=== PATIENT | female | born 1940 | race Hispanic/Latino ===

== ENCOUNTER 2016-08-12 17:12 | Emergency (ER) | payer MEDICARE ==
[2016-08-12] MEDS ORDERED: NACL 0.9% 500 ML 500 ML IV ONE (17:44)
[2016-08-12 18:10] LABS: Bilirubin,Urine NEG (Negative); Blood,Urine NEG (Negative); Ketones,Urine TR mg/dL (Negative); Leukocyte Esterase,Urine NEG (Negative); Mucus,Urine FEW /HPF; Nitrite,Urine NEG (Negative); Protein,Urine <15 mg/dL mg/dL (Negative); Urobilinogen,Urine < 2.0 mg/dL (<2.0)
[2016-08-12] MEDS ORDERED: NACL 0.9% 1000 ML 1,000 ML IV ONE (18:13)
--- NOTE | 2016-08-12 18:18 | Emergency Department Report ---
ED Altered Mental Status HPI - General Chief Complaint: Altered Mental Status Stated Complaint: AMS Time Seen by Provider: 08/12/16 17:59 Source: patient, EMS Mode of arrival: Stretcher Limitations: Altered Mental Status - History of Present Illness Initial Comments: 75-year-old female with history of hypertension and chronic back pain secondary to polio seeing pain medication doctor presented today because of altered mental status. Patient's son states that she was a little bit confused today and sleepy than usual. Unclear if she may have taken more that of her medication including her pain medication and medication for sleep and usual. Patient is denying any complaints. Upon arrival she was apparently hypoxic on room air but 100% on nonrebreather. Has not been having any cough, dysuria or any other symptoms recently. - Related Data Allergies Allergy/AdvReac Type Severity Reaction Status Date / Time No Known Allergies Allergy Unverified 08/12/16 17:39 ED Review of Systems ROS: Stated complaint: AMS Other details as noted in HPI Comment: All other systems reviewed and negative Constitutional: denies: chills, fever Respiratory: denies: cough Cardiovascular: denies: chest pain Gastrointestinal: denies: abdominal pain, vomiting Skin: denies: rash Neurological: denies: headache Psychiatric: denies: anxiety ED Past Medical Hx - Past Medical History Previous Medical History?: Yes Hx Hypertension: Yes - Surgical History Past Surgical History?: No - Social History Smoking Status: Never Smoker Substance Use Type: None ED Physical Exam - General Limitations: Altered Mental Status General appearance: alert, in no apparent distress - Eye Eye exam: Present: normal appearance, PERRL, EOMI - ENT ENT exam: Present: normal exam - Respiratory Respiratory exam: Present: normal lung sounds bilaterally. Absent: respiratory distress - Cardiovascular Cardiovascular Exam: Present: regular rate, normal rhythm - GI/Abdominal GI/Abdominal exam: Present: soft. Absent: distended, tenderness - Extremities Exam Extremities exam: Present: normal inspection - Neurological Exam Neurological exam: Present: other (alert and oriented 2, no focal deficits, strength 5 out of 5 in all extremities, no facial droop) - Psychiatric Psychiatric exam: Present: normal affect - Skin Skin exam: Present: intact ED Course Vital Signs 08/12/16 08/12/16 08/12/16 17:20 17:31 17:39 Temperature 99.5 F Pulse Rate 82 86 Respiratory 9 L 20 Rate Blood Pressure 118/56 109/52 118/56 Blood Pressure [Right] O2 Sat by Pulse 62 L 99 66 L Oximetry 08/12/16 08/12/16 08/12/16 18:00 19:15 19:28 Temperature Pulse Rate 80 75 Respiratory 10 L 12 Rate Blood Pressure 101/45 101/45 Blood Pressure 90/53 [Right] O2 Sat by Pulse 100 100 100 Oximetry 08/12/16 08/12/16 08/12/16 19:30 19:31 20:00 Temperature Pulse Rate 74 74 Respiratory 9 L 9 L Rate Blood Pressure 90/53 104/62 Blood Pressure [Right] O2 Sat by Pulse 100 100 99 Oximetry 08/12/16 08/12/16 08/12/16 20:31 21:00 21:31 Temperature Pulse Rate 77 77 75 Respiratory 13 18 10 L Rate Blood Pressure 104/62 111/70 111/70 Blood Pressure [Right] O2 Sat by Pulse 96 96 98 Oximetry - Reevaluation(s) Reevaluation #1: 08/12/16 20:14 She spent a lot of status is improved, she is much more awake but still not at her baseline. ABG showed hypercapnia, placed on a Ventimask. Reevaluation #2: 08/13/16 01:19 CABG so shows hypercapnia and given that she is on 40% O2 she is still a bit hypoxic, will admit the patient for altered mental status - Lab Data Result diagrams: 08/12/16 18:19 08/12/16 22:23 Lab Results 08/12/16 08/12/16 08/12/16 Range/Units 17:45 18:19 18:19 WBC 6.4 (4.5-11.0) K/mm3 RBC 4.12 (3.65-5.03) M/mm3 Hgb 8.4 L (10.1-14.3) gm/dl Hct 28.6 L (30.3-42.9) % MCV 70 L (79-97) fl MCH 21 L (28-32) pg MCHC 30 (30-34) % RDW 19.6 H (13.2-15.2) % Plt Count 260 (140-440) K/mm3 Lymph % (Auto) 16.1 (13.4-35.0) % [place] % (Auto) 5.7 (0.0-7.3) % Eos % (Auto) 1.3 (0.0-4.3) % Baso % (Auto) 0.2 (0.0-1.8) % Lymph # 1.0 L (1.2-5.4) K/mm3 [place] # 0.4 (0.0-0.8) K/mm3 Eos # 0.1 (0.0-0.4) K/mm3 Baso # 0.0 (0.0-0.1) K/mm3 Seg Neutrophils % 76.7 H (40.0-70.0) % Seg Neutrophils # 4.9 (1.8-7.7) K/mm3 PT 14.7 (12.2-14.9) Sec. INR 1.16 H (0.87-1.13) POC ABG pH (7.35-7.45) POC ABG pCO2 (35-45) POC ABG pO2 (80-105) POC ABG HCO3 POC ABG Total CO2 POC ABG O2 Sat POC ABG Base Excess VBG pH (7.320-7.420) FiO2 % Sodium (137-145) mmol/L Potassium (3.6-5.0) mmol/L Chloride (98-107) mmol/L Carbon Dioxide (22-30) mmol/L Anion Gap mmol/L BUN (7-17) mg/dL Creatinine (0.7-1.2) mg/dL Estimated GFR ml/min BUN/Creatinine Ratio % Glucose (65-100) mg/dL Lactic Acid (0.7-2.0) mmol/L Calcium (8.4-10.2) mg/dL Phosphorus (2.5-4.5) mg/dL Magnesium (1.7-2.3) mg/dL Total Bilirubin (0.1-1.2) mg/dL AST (5-40) units/L ALT (7-56) units/L Alkaline Phosphatase (35-129) units/L Ammonia (25-60) umol/L Total Protein (6.3-8.2) g/dL Albumin (3.9-5) g/dL Albumin/Globulin Ratio % Urine Color Yellow (Yellow) Urine Turbidity Clear (Clear) Urine pH 5.0 (5.0-7.0) Ur Specific [place] 1.019 (1.003-1.030) Urine Protein <15 mg/dl (Negative) mg/dL Urine Glucose (UA) Neg (Negative) mg/dL Urine Ketones Tr (Negative) mg/dL Urine Blood Neg (Negative) Urine Nitrite Neg (Negative) Urine Bilirubin Neg (Negative) Urine Urobilinogen < 2.0 (<2.0) mg/dL Ur Leukocyte Esterase Neg (Negative) Urine WBC (Auto) 1.0 (0.0-6.0) /HPF Urine RBC (Auto) 1.0 (0.0-6.0) /HPF Amorphous Crystals Few Urine Mucus Few /HPF Salicylates (2.8-20.0) mg/dL Acetaminophen (10.0-30.0) ug/mL Plasma/Serum Alcohol (0-0.07) gm% 08/12/16 08/12/16 08/12/16 Range/Units 18:19 18:19 18:19 WBC (4.5-11.0) K/mm3 RBC (3.65-5.03) M/mm3 Hgb (10.1-14.3) gm/dl Hct (30.3-42.9) % MCV (79-97) fl MCH (28-32) pg MCHC (30-34) % RDW (13.2-15.2) % Plt Count (140-440) K/mm3 Lymph % (Auto) (13.4-35.0) % [place] % (Auto) (0.0-7.3) % Eos % (Auto) (0.0-4.3) % Baso % (Auto) (0.0-1.8) % Lymph # (1.2-5.4) K/mm3 [place] # (0.0-0.8) K/mm3 Eos # (0.0-0.4) K/mm3 Baso # (0.0-0.1) K/mm3 Seg Neutrophils % (40.0-70.0) % Seg Neutrophils # (1.8-7.7) K/mm3 PT (12.2-14.9) Sec. INR (0.87-1.13) POC ABG pH (7.35-7.45) POC ABG pCO2 (35-45) POC ABG pO2 (80-105) POC ABG HCO3 POC ABG Total CO2 POC ABG O2 Sat POC ABG Base Excess VBG pH 7.180 L* (7.320-7.420) FiO2 % Sodium 138 (137-145) mmol/L Potassium 4.2 (3.6-5.0) mmol/L Chloride 99.5 (98-107) mmol/L Carbon Dioxide 25 (22-30) mmol/L Anion Gap 18 mmol/L BUN 29 H (7-17) mg/dL Creatinine 1.3 H (0.7-1.2) mg/dL Estimated GFR 40 ml/min BUN/Creatinine Ratio 22.30 % Glucose 103 H (65-100) mg/dL Lactic Acid 0.9 (0.7-2.0) mmol/L Calcium 8.4 (8.4-10.2) mg/dL Phosphorus (2.5-4.5) mg/dL Magnesium (1.7-2.3) mg/dL Total Bilirubin 0.2 (0.1-1.2) mg/dL AST 25 (5-40) units/L ALT 10 (7-56) units/L Alkaline Phosphatase 82 (35-129) units/L Ammonia (25-60) umol/L Total Protein 6.8 (6.3-8.2) g/dL Albumin 3.8 L (3.9-5) g/dL Albumin/Globulin Ratio 1.3 % Urine Color (Yellow) Urine Turbidity (Clear) Urine pH (5.0-7.0) Ur Specific [place] (1.003-1.030) Urine Protein (Negative) mg/dL Urine Glucose (UA) (Negative) mg/dL Urine Ketones (Negative) mg/dL Urine Blood (Negative) Urine Nitrite (Negative) Urine Bilirubin (Negative) Urine Urobilinogen (<2.0) mg/dL Ur Leukocyte Esterase (Negative) Urine WBC (Auto) (0.0-6.0) /HPF Urine RBC (Auto) (0.0-6.0) /HPF Amorphous Crystals Urine Mucus /HPF Salicylates (2.8-20.0) mg/dL Acetaminophen (10.0-30.0) ug/mL Plasma/Serum Alcohol (0-0.07) gm% 08/12/16 08/12/16 08/12/16 Range/Units 18:34 18:34 18:34 WBC (4.5-11.0) K/mm3 RBC (3.65-5.03) M/mm3 Hgb (10.1-14.3) gm/dl Hct (30.3-42.9) % MCV (79-97) fl MCH (28-32) pg MCHC (30-34) % RDW (13.2-15.2) % Plt Count (140-440) K/mm3 Lymph % (Auto) (13.4-35.0) % [place] % (Auto) (0.0-7.3) % Eos % (Auto) (0.0-4.3) % Baso % (Auto) (0.0-1.8) % Lymph # (1.2-5.4) K/mm3 [place] # (0.0-0.8) K/mm3 Eos # (0.0-0.4) K/mm3 Baso # (0.0-0.1) K/mm3 Seg Neutrophils % (40.0-70.0) % Seg Neutrophils # (1.8-7.7) K/mm3 PT (12.2-14.9) Sec. INR (0.87-1.13) POC ABG pH (7.35-7.45) POC ABG pCO2 (35-45) POC ABG pO2 (80-105) POC ABG HCO3 POC ABG Total CO2 POC ABG O2 Sat POC ABG Base Excess VBG pH (7.320-7.420) FiO2 % Sodium (137-145) mmol/L Potassium (3.6-5.0) mmol/L Chloride (98-107) mmol/L Carbon Dioxide (22-30) mmol/L Anion Gap mmol/L BUN (7-17) mg/dL Creatinine (0.7-1.2) mg/dL Estimated GFR ml/min BUN/Creatinine Ratio % Glucose (65-100) mg/dL Lactic Acid (0.7-2.0) mmol/L Calcium (8.4-10.2) mg/dL Phosphorus (2.5-4.5) mg/dL Magnesium (1.7-2.3) mg/dL Total Bilirubin (0.1-1.2) mg/dL AST (5-40) units/L ALT (7-56) units/L Alkaline Phosphatase (35-129) units/L Ammonia 41.0 (25-60) umol/L Total Protein (6.3-8.2) g/dL Albumin (3.9-5) g/dL Albumin/Globulin Ratio % Urine Color (Yellow) Urine Turbidity (Clear) Urine pH (5.0-7.0) Ur Specific [place] (1.003-1.030) Urine Protein (Negative) mg/dL Urine Glucose (UA) (Negative) mg/dL Urine Ketones (Negative) mg/dL Urine Blood (Negative) Urine Nitrite (Negative) Urine Bilirubin (Negative) Urine Urobilinogen (<2.0) mg/dL Ur Leukocyte Esterase (Negative) Urine WBC (Auto) (0.0-6.0) /HPF Urine RBC (Auto) (0.0-6.0) /HPF Amorphous Crystals Urine Mucus /HPF Salicylates < 0.3 L (2.8-20.0) mg/dL Acetaminophen < 15.0 (10.0-30.0) ug/mL Plasma/Serum Alcohol (0-0.07) gm% 08/12/16 08/12/16 08/12/16 Range/Units 18:34 18:34 19:44 WBC (4.5-11.0) K/mm3 RBC (3.65-5.03) M/mm3 Hgb (10.1-14.3) gm/dl Hct (30.3-42.9) % MCV (79-97) fl MCH (28-32) pg MCHC (30-34) % RDW (13.2-15.2) % Plt Count (140-440) K/mm3 Lymph % (Auto) (13.4-35.0) % [place] % (Auto) (0.0-7.3) % Eos % (Auto) (0.0-4.3) % Baso % (Auto) (0.0-1.8) % Lymph # (1.2-5.4) K/mm3 [place] # (0.0-0.8) K/mm3 Eos # (0.0-0.4) K/mm3 Baso # (0.0-0.1) K/mm3 Seg Neutrophils % (40.0-70.0) % Seg Neutrophils # (1.8-7.7) K/mm3 PT (12.2-14.9) Sec. INR (0.87-1.13) POC ABG pH 7.255 L (7.35-7.45) POC ABG pCO2 63.3 H (35-45) POC ABG pO2 203 H (80-105) POC ABG HCO3 28.0 POC ABG Total CO2 30 POC ABG O2 Sat 100 POC ABG Base Excess 1 VBG pH (7.320-7.420) FiO2 100 % Sodium (137-145) mmol/L Potassium (3.6-5.0) mmol/L Chloride (98-107) mmol/L Carbon Dioxide (22-30) mmol/L Anion Gap mmol/L BUN (7-17) mg/dL Creatinine (0.7-1.2) mg/dL Estimated GFR ml/min BUN/Creatinine Ratio % Glucose (65-100) mg/dL Lactic Acid (0.7-2.0) mmol/L Calcium (8.4-10.2) mg/dL Phosphorus 5.6 H (2.5-4.5) mg/dL Magnesium 2.1 (1.7-2.3) mg/dL Total Bilirubin (0.1-1.2) mg/dL AST (5-40) units/L ALT (7-56) units/L Alkaline Phosphatase (35-129) units/L Ammonia (25-60) umol/L Total Protein (6.3-8.2) g/dL Albumin (3.9-5) g/dL Albumin/Globulin Ratio % Urine Color (Yellow) Urine Turbidity (Clear) Urine pH (5.0-7.0) Ur Specific [place] (1.003-1.030) Urine Protein (Negative) mg/dL Urine Glucose (UA) (Negative) mg/dL Urine Ketones (Negative) mg/dL Urine Blood (Negative) Urine Nitrite (Negative) Urine Bilirubin (Negative) Urine Urobilinogen (<2.0) mg/dL Ur Leukocyte Esterase (Negative) Urine WBC (Auto) (0.0-6.0) /HPF Urine RBC (Auto) (0.0-6.0) /HPF Amorphous Crystals Urine Mucus /HPF Salicylates (2.8-20.0) mg/dL Acetaminophen (10.0-30.0) ug/mL Plasma/Serum Alcohol < 0.01 (0-0.07) gm% 08/12/16 08/12/16 Range/Units 20:41 22:23 WBC (4.5-11.0) K/mm3 RBC (3.65-5.03) M/mm3 Hgb (10.1-14.3) gm/dl Hct (30.3-42.9) % MCV (79-97) fl MCH (28-32) pg MCHC (30-34) % RDW (13.2-15.2) % Plt Count (140-440) K/mm3 Lymph % (Auto) (13.4-35.0) % [place] % (Auto) (0.0-7.3) % Eos % (Auto) (0.0-4.3) % Baso % (Auto) (0.0-1.8) % Lymph # (1.2-5.4) K/mm3 [place] # (0.0-0.8) K/mm3 Eos # (0.0-0.4) K/mm3 Baso # (0.0-0.1) K/mm3 Seg Neutrophils % (40.0-70.0) % Seg Neutrophils # (1.8-7.7) K/mm3 PT (12.2-14.9) Sec. INR (0.87-1.13) POC ABG pH (7.35-7.45) POC ABG pCO2 (35-45) POC ABG pO2 (80-105) POC ABG HCO3 POC ABG Total CO2 POC ABG O2 Sat POC ABG Base Excess VBG pH (7.320-7.420) FiO2 % Sodium 139 (137-145) mmol/L Potassium 4.2 (3.6-5.0) mmol/L Chloride 104.1 (98-107) mmol/L Carbon Dioxide 26 (22-30) mmol/L Anion Gap 13 mmol/L BUN 27 H (7-17) mg/dL Creatinine 1.2 (0.7-1.2) mg/dL Estimated GFR 44 ml/min BUN/Creatinine Ratio 22.50 % Glucose 108 H (65-100) mg/dL Lactic Acid 0.7 (0.7-2.0) mmol/L Calcium 7.8 L (8.4-10.2) mg/dL Phosphorus (2.5-4.5) mg/dL Magnesium (1.7-2.3) mg/dL Total Bilirubin (0.1-1.2) mg/dL AST (5-40) units/L ALT (7-56) units/L Alkaline Phosphatase (35-129) units/L Ammonia (25-60) umol/L Total Protein (6.3-8.2) g/dL Albumin (3.9-5) g/dL Albumin/Globulin Ratio % Urine Color (Yellow) Urine Turbidity (Clear) Urine pH (5.0-7.0) Ur Specific [place] (1.003-1.030) Urine Protein (Negative) mg/dL Urine Glucose (UA) (Negative) mg/dL Urine Ketones (Negative) mg/dL Urine Blood (Negative) Urine Nitrite (Negative) Urine Bilirubin (Negative) Urine Urobilinogen (<2.0) mg/dL Ur Leukocyte Esterase (Negative) Urine WBC (Auto) (0.0-6.0) /HPF Urine RBC (Auto) (0.0-6.0) /HPF Amorphous Crystals Urine Mucus /HPF Salicylates (2.8-20.0) mg/dL Acetaminophen (10.0-30.0) ug/mL Plasma/Serum Alcohol (0-0.07) gm% - Medical Decision Making IV, labs, nonrebreather, CT head, chest x-ray Chest x-ray appears to show a bowel in the right upper quadrant, no clear focal infiltrate CTA of the chest done for hypoxia without clear etiology has a patient is not a smoker and has no history of COPD or asthma Labs show a low pH likely secondary to hypercapnia CT head negative Will Admit for altered mental status and hypoxia and hypercapnia Critical care attestation.: If time is entered above; I have spent that time in minutes in the direct care of this critically ill patient, excluding procedure time. ED Disposition Clinical Impression: Metabolic encephalopathy Disposition: OP ADMITTED IP TO THIS HOSP Is pt being admited?: Yes Does the pt Need Aspirin: No Condition: Stable Referrals: PRIMARY CARE, [Primary Care Provider] - 3-5 Days Time of Disposition: 01:23
[2016-08-12 18:45] LABS: Basophils % (Auto) 0.2 % (0.0-1.8); Eosinophils % (Auto) 1.3 % (0.0-4.3); Mean Corpuscular HGB Conc 30 % (30-34); Platelet Count 260 K/mm3 (140-440); Red Blood Count 4.12 M/mm3 (3.65-5.03); Red Cell Distribution Width 19.6 % (13.2-15.2); White Blood Count 6.4 K/mm3 (4.5-11.0)
[2016-08-12 18:57] LABS: Albumin 3.8 g/dL (3.9-5); Albumin/Globulin Ratio 1.3 %; BUN/Creatinine Ratio 22.3; Bilirubin,Total 0.2 mg/dL (0.1-1.2); Calcium 8.4 mg/dL (8.4-10.2); Chloride 99.5 mmol/L (98-107); Potassium 4.2 mmol/L (3.6-5.0); Total Protein 6.8 g/dL (6.3-8.2)
--- NOTE | 2016-08-12 19:07 | Cat Scan Report ---
FINAL REPORT EXAM: CT HEAD/BRAIN WO CON HISTORY: ams TECHNIQUE: CT imaging is acquired through the brain without contrast. Transaxial reformations are provided. PRIORS: None. FINDINGS: Ventricles and CSF spaces are proportionately enlarged, consistent with parenchymal atrophy. Scattered deep and subcortical white matter hypodense foci are confluent in some areas and are compatible with microvascular angiopathy. No acute intracranial hemorrhage or mass effect. Calvarium and superficial scalp are intact. Hyperostosis frontalis. Partially visualized paranasal sinuses are clear. Mastoids are clear. IMPRESSION: No acute intracranial abnormality. 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 Consider MRI follow-up.
[2016-08-12 19:12] LABS: Magnesium 2.1 mg/dL (1.7-2.3); Phosphorous 5.6 mg/dL (2.5-4.5)
[2016-08-12 19:21] LABS: Hematocrit 28.6 % (30.3-42.9); Hemoglobin 8.4 gm/dl (10.1-14.3)
[2016-08-12 19:22] LABS: Mean Corpuscular Hemoglobin 21 pg (28-32); Mean Corpuscular Volume 70 fl (79-97)
--- NOTE | 2016-08-12 19:35 | Admit Criteria Form ---
Admission Criteria Documentation: MENTAL STATUS CHANGE Clinical Indications for Inpatient Care (Place 'X' for any and all applicable criteria): Ongoing inpatient care may be needed for 1 or more of the following(1)(2)(3)(5)( 6): []I. Suspected serious etiology (eg, medical disorder, MARKET PRESIDENT event) of altered mental status [ ]II. Danger to self or others not manageable at lower level of care [ ]III. Grave disability (eg, inability to perform self care necessary at lower level of care) [ ]IV. Agitation or inappropriate behavior interfering with care for primary condition (eg, attempting to discontinue lines or drains prematurely, unable to cooperate with respiratory care) [ ]V. Delirium [A] [D][E] as described by 1 or more of the following(26): [ ]a) Delirium due to alcohol or sedative [F] withdrawal [ ]b) Delirium of uncertain etiology that has not responded to appropriate empiric treatment [ ]c) Delirium that prevents performance of a life-sustaining function (eg, feeding or hydrating oneself) [X]. General contraindications and/or Inappropriate clinical situations for Observational Care in patients with Mental Status Change, when ANY ONE of the following is required: [X]a) Prediction of prolongation of LOS based on ANY ONE of the following may be considered as a contraindication for observational care 2, 3, 4, 5, 6, 7, 8, 9, 10, 11 [X]i) Age > 65 yrs. [ ]ii) Patient arriving by ambulance [ ]iii) Patient with high acuity [ ]iv) Patient requiring vital sign monitoring [ ]v) Patient on IV medication [ ]b) Systolic blood pressures greater than or equal to 180mmHg 3, 12 [ ]c) Patient with altered mental status including delirium and other alteration of consciousness, (3) [ ]d) Patient whose discharge disposition will be to a nursing home home or rehabilitation home should not be managed in Emergency Department Observation Unit. CMS rule requires 3 days hospital stay before such placement.3,13 [ ]e) Patient with failure to thrive due to broad array of etiologies 3,16,17 [ ]f) Inability to ambulate 3,14 Extended stay beyond goal length of stay for the primary condition may be needed until ALL of the following are present(3)(5): [ ]a) Underlying medical etiology of mental status change is absent, or has been established and adequately treated [ ]b) Danger to self or others is absent or manageable at lower level of care. [ ]c) Behavior crisis management, including physical or chemical restraints, is not required or available at lower level of car [ ]d) Substance or alcohol withdrawal is absent or manageable at lower level of care. [ ]e) Behavioral symptoms (eg, agitation, somnolence, inappropriate behavior) are absent, or are manageable at lower level of care. The original [facility] content created by [facility] has been revised. The portions of the content which have been revised are identified through the use of italic text or in bold, and [facility] has neither reviewed nor approved the modified material. All other unmodified content is copyright [facility]. Please see references footnoted in the original [facility] edition 2016
[2016-08-12 19:48] LABS: INR 1.16 (0.87-1.13)
[2016-08-12] MEDS ORDERED: NARCAN 0.4 MG/1 ML IV ONE (20:02)
[2016-08-12 20:16] LABS: ISTAT Base Excess 1; ISTAT PCO2 63.3 (35-45); ISTAT PH 7.255 (7.35-7.45); ISTAT PO2 203 (80-105); ISTAT SO2 100; ISTAT TCO2 30
[2016-08-12] MEDS ORDERED: NACL ONE (22:44)
[2016-08-12 23:02] LABS: BUN/Creatinine Ratio 22.5; Calcium 7.8 mg/dL (8.4-10.2); Chloride 104.1 mmol/L (98-107); Potassium 4.2 mmol/L (3.6-5.0)
--- NOTE | 2016-08-13 00:40 | Cat Scan Report ---
FINAL REPORT EXAM: CT ANGIO CHEST HISTORY: ams, hypoxic COMPARISON: None available. TECHNIQUE: Contiguous axial images were obtained. Additional sagittal and coronal reformatted images were obtained. Administration of IV contrast given per institution protocol. Images submitted for interpretation. 100 cc Omnipaque 350. 3D volume renderings were obtained. FINDINGS: Mild cardiac enlargement. Ascending thoracic aorta measures 3.6 centimeters in diameter, within normal limits. No dissection. Mild to moderate calcified plaque along the thoracic aorta. No pulmonary embolus. Prominent bony lytic hernia on the right. Dense consolidation right lower lobe may reflect compressive atelectasis from the hernia. Pneumonia cannot be excluded. Scarring at the lung apices. Multiple calcified granulomas left upper lobe. Subpleural nodule at the anterior margin right middle lobe measuring 6 millimeters. 4 millimeter nodule right middle lobe is also present. Mild linear scarring or atelectasis left lower lobe. No obstructive lesion centrally within the tracheobronchial tree. Unopacified azygos vein is present and appears mildly prominent (series 3, image 32). IMPRESSION: No pulmonary embolus. 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 Consolidation right lower lobe may reflect compressive atelectasis. Pneumonia cannot be excluded. Scarring at the lung apices more pronounced on the left. Noncalcified nodules right middle lobe measuring up to [address] within 6-12 months suggested to ensure stability.
[2016-08-13 01:39] LABS: ISTAT Base Excess -3; ISTAT HCO3 24.6; ISTAT PCO2 59.4 (35-45); ISTAT PH 7.226 (7.35-7.45); ISTAT PO2 73 (80-105); ISTAT SO2 91; ISTAT TCO2 26
[2016-08-13 04:08] VITALS: BP 117/53
--- NOTE | 2016-08-13 10:12 | XRay Report ---
PORTABLE CHEST INDICATION: Possible sepsis. COMPARISON: None similar at this institution. FINDINGS: Portable, frontal chest radiograph demonstrates limited inspiration with slightly crowded markings and right lower lung haziness, presumably pleural fluid. Hepatic flexure lucency subjacent to the right hemidiaphragm may be noted with similar appearance to the splenic flexure on the left. Approximately 3 cm left upper lobe possibly nodular calcific scarring. Mild biapical scarring/pleural thickening as well. Mild aortic knob calcifications. Normal cardiomediastinal silhouette. EKG leads. Demineralized bones with few degenerative changes. CONCLUSION: Right lower lung haziness, left upper lobe possible scarring and other incidental findings, as above. Please correlate clinically and with prior chest imaging if available or further with CT, as warranted. Thank you for the opportunity to participate in this patient's care.
== END 2016-08-13 03:57 | disposition left against medical advice (07) ==
LOC: ED 17:12
DX: G93.41 Metabolic encephalopathy (principal); I10 Essential (primary) hypertension
CPT/HCPCS: 36415; 70450; 71010; 71275; 80048; 80053; 81001; 82140; 82803; 82805; 83735; 84100; 85025; 85610; 87040; 87086; 93005; 93010; 96360; 99285; G0480; J2310; J7030; J7040; 80320

== ENCOUNTER 2016-12-02 12:49 | Emergency (ER) | payer MEDICARE ==
--- NOTE | 2016-12-02 14:28 | XRay Report ---
Left wrist: Trauma, pain. There is a transverse fracture through the radius metaphysis as well as the distal ulnar. The distal radius fragment is slightly impacted and displaced posteriorly but still aligned with the carpal bones. There is also mild impaction of the distal ulnar fracture with angled posterior displacement of the distal fragment and apparent fracture of the styloid. The carpal bones appear intact. No pathologic lesions identified. Impressions: Displaced radius and ulnar fractures.
[2016-12-02] MEDS ORDERED: PERCOCET 5/325 PO ONE (14:53)
--- NOTE | 2016-12-02 15:05 | Emergency Department Report ---
HPI - General Chief Complaint: Fall Time Seen by Provider: 12/02/16 14:46 - HPI HPI: This is a 76-year-old female presents to the emergency department from home with complaint of left wrist pain and deformity since she had a slip and fall around noon today. The patient had some water on the ground and fell on her way back to bed. She fell with outstretched arms. She denies hitting her head or any loss of consciousness. She denies pain anywhere else besides the left wrist and arm. She has a past medical history of hypertension and previously had polio causing her to need to walk with a cane or crutches. She has not taken anything for symptoms prior to presentation. She is right-hand dominant. ED Past Medical Hx - Past Medical History Hx Hypertension: Yes Additional medical history: POLIO - Social History Smoking Status: Never Smoker Substance Use Type: None - Medications Home Medications: Home Medications Medication Instructions Recorded Confirmed Last Taken Type HYDROcodone/APAP 5-325 [[place] 1 each PO Q6HR PRN #10 tablet 12/02/16 Unknown Rx 5/325] ED Review of Systems ROS: Stated complaint: FALL Other details as noted in HPI Comment: All other systems reviewed and negative Constitutional: denies: chills, fever Eyes: denies: eye pain, eye discharge, vision change ENT: denies: ear pain, throat pain Respiratory: denies: cough, shortness of breath, wheezing Cardiovascular: denies: chest pain, palpitations Gastrointestinal: denies: abdominal pain, nausea, diarrhea Genitourinary: denies: urgency, dysuria, discharge Musculoskeletal: joint swelling, arthralgia Skin: denies: rash, lesions Neurological: denies: headache, weakness, paresthesias Physical Exam - Physical Exam Vital Signs: Vital Signs 12/02/16 13:51 Temperature 97.4 F L Pulse Rate 77 Respiratory 17 Rate Blood Pressure 114/56 O2 Sat by Pulse 99 Oximetry Physical Exam: GENERAL: The patient is well-developed well-nourished. HEENT: Normocephalic. Atraumatic. Extraocular motions are intact. Patient has moist mucous membranes. NECK: Supple. Trachea is midline. CHEST/LUNGS: Clear to auscultation. There is no respiratory distress noted. HEART/CARDIOVASCULAR: Regular. There is no tachycardia. There is no gallop rub or murmur. ABDOMEN: Abdomen is soft, nontender. Patient has normal bowel sounds. There is no abdominal distention. SKIN: Skin is warm and dry. There is some nonpitting swelling to the distal left forearm and wrist. NEURO: The patient is awake, alert, and oriented. The patient is cooperative. The patient has no focal neurologic deficits. The patient has normal speech. MUSCULOSKELETAL: There is a mild to moderate deformity seen to the distal left forearm and wrist consistent with a fracture. Cap refill less than 2 seconds. Radial pulses +2 over 4 bilaterally. Neurovascular intact. ED Course Vital Signs 12/02/16 13:51 Temperature 97.4 F L Pulse Rate 77 Respiratory 17 Rate Blood Pressure 114/56 O2 Sat by Pulse 99 Oximetry - Consultations Consultation #1: I spoke with the orthopedist on-call, Dr. Kiran, who took a look at the x-rays and listened to the case presentation and feels that it is safe for the patient to receive a splint, sling and follow-up on Wednesday in his office without any type of manipulation here in the emergency department since the patient is neurovascularly intact. She will most likely receive surgical intervention next week. 12/02/16 15:04 ED Medical Decision Making - Radiology Data Radiology results: image reviewed interpreted by me: X-ray of the left wrist shows a ulnar and radial fracture with an impact injury as well as some displacement. - Medical Decision Making 76-year-old female presents with left wrist pain and deformity after slipping and falling at home. X-ray confirms and ulnar and radial fracture. Spoke with an orthopedist who recommended splinting and follow-up on Wednesday. Patient given something for pain and placed in a volar splint. She is neurovascularly intact. Vital signs stable. - Differential Diagnosis fracture, dislocation, contusion, sprain Critical Care Time: No Critical care attestation.: If time is entered above; I have spent that time in minutes in the direct care of this critically ill patient, excluding procedure time. ED Disposition Clinical Impression: Left wrist fracture Qualifiers: Encounter type: initial encounter Fracture type: closed Qualified Code(s): S62.102A - Fracture of unspecified carpal bone, left wrist, initial encounter for closed fracture Fracture of radius, distal, with ulna, left, closed Qualifiers: Encounter type: initial encounter Qualified Code(s): S52.502A - Unspecified fracture of the lower end of left radius, initial encounter for closed fracture ; S52.602A - Unspecified fracture of lower end of left ulna, initial encounter for closed fracture Disposition: - TO HOME OR SELFCARE Is pt being admited?: No Condition: Stable Instructions: Wrist Fracture in Adults (ED) Additional Instructions: Please follow-up with the orthopedist, Dr. Kiran, on Wednesday. Call tomorrow for an appointment. You can use ice, but not directly against the skin, intermittently throughout the next 48 hours. Return to the emergency department with any worsening of your symptoms or any acute distress. You've been prescribed a medication that is sedating. Therefore this medication cannot be mixed with alcohol, or taken prior to driving, working, or being responsible for children. Do not take the splint off until follow-up with the orthopedist. Prescriptions: HYDROcodone/APAP 5-325 [[place] 5/325] 1 each PO Q6HR PRN #10 tablet PRN Reason: Pain Referrals: BRENDA KIRAN MD [Staff Physician] - 12/04/16 Time of Disposition: 15:52
[2016-12-02 16:18] VITALS: BP 100/58
== END 2016-12-02 16:19 | disposition home or self-care (01) ==
LOC: ED 12:49
DX: S52.502A Unspecified fracture of the lower end of left radius, initial encounter for closed fracture (principal); S52.602A Unspecified fracture of lower end of left ulna, initial encounter for closed fracture; S62.102A Fracture of unspecified carpal bone, left wrist, initial encounter for closed fracture; I10 Essential (primary) hypertension; W01.0XXA Fall on same level from slipping, tripping and stumbling without subsequent striking against object, initial encounter; Y93.89 Activity, other specified; Y99.8 Other external cause status; Y92.89 Other specified places as the place of occurrence of the external cause

== ENCOUNTER 2016-12-08 08:37 | Day surgery (SDC) | payer MEDICARE ==
[~2016-12-08 08:37] MED LIST: ANCEF/STERILE WATER 2 GM/20 ML IV NR
--- NOTE | 2016-12-08 09:47 | Anesthesia Consultation ---
Anesthesia Consult and Med Hx Date of service: 12/08/16 - Airway Anesthetic Teeth Evaluation: Poor (7 teeth left, black and pointed), Dentures ( upper) ROM Head & Neck: Adequate Mental/Hyoid Distance: Adequate Mallampati Class: Class II Intubation Access Assessment: Probably Good - Pulmonary Exam CTA: Yes - Cardiac Exam Cardiac Exam: RRR - Pre-Operative Health Status ASA Pre-Surgery Classification: ASA3 Proposed Anesthetic Plan: General - Pulmonary Hx Smoking: Yes Hx Asthma: Yes (SEASONAL) Hx Sleep Apnea: No (LUCIE PRE SCREEN LOW RISK) - Cardiovascular System Hx Hypertension: Yes (X 10 YRS) - Central Nervous System Hx Back Pain: Yes - Other Systems Hx Cancer: No - Additional Comments Anesthesia Medical History Comments: H/O polio as baby. walks with cane
--- NOTE | 2016-12-08 09:47 | Anesthesia Day of Surgery ---
Anesthesia Day of Surgery - Day of Surgery Patient Examined: Yes Patient H&P Reviewed: Yes Patient is NPO: Yes
[2016-12-08] MEDS ORDERED: VERSED IV NR (10:00)
[2016-12-08] MEDS ORDERED: PEPCID IV NR (10:00)
[2016-12-08] MEDS ORDERED: NACL 0.9% 1000 ML 1,000 ML IV SCH (10:00)
[2016-12-08] MEDS ORDERED: XYLOCAINE 1% 20 mL ONE (10:07)
[2016-12-08] MEDS ORDERED: MARCAINE-EPI 0.5%-1:200,000 INFILTRATI ONE (10:08)
[2016-12-08] MEDS ORDERED: DECADRON ONE (10:08)
[2016-12-08] MEDS ORDERED: CLONIDINE 1,000 MCG/10 ML VIAL EP ONE (10:08)
[2016-12-08 10:13] LABS: Basophils % (Auto) 0.9 % (0.0-1.8); Eosinophils % (Auto) 6.2 % (0.0-4.3); Hematocrit 27.1 % (30.3-42.9); Hemoglobin 8.2 gm/dl (10.1-14.3); Mean Corpuscular HGB Conc 30 % (30-34); Platelet Count 328 K/mm3 (140-440); Red Blood Count 4.15 M/mm3 (3.65-5.03); Red Cell Distribution Width 19.8 % (13.2-15.2); White Blood Count 5.7 K/mm3 (4.5-11.0)
[2016-12-08 10:19] LABS: Mean Corpuscular Hemoglobin 20 pg (28-32); Mean Corpuscular Volume 65 fl (79-97)
[2016-12-08 10:28] LABS: Alanine Aminotransferase 10 units/L (7-56); Albumin 3.9 g/dL (3.9-5); Albumin/Globulin Ratio 1.1 %; Alkaline Phosphatase 80 units/L (35-129); BUN/Creatinine Ratio 13.75; Blood Urea Nitrogen 11 mg/dL (7-17); Calcium 8.9 mg/dL (8.4-10.2); Carbon Dioxide 27 mmol/L (22-30); Glucose 94 mg/dL (65-100); Total Protein 7.4 g/dL (6.3-8.2)
[2016-12-08 10:29] LABS: Anion Gap 17 mmol/L; Chloride 99.7 mmol/L (98-107); Potassium 4.4 mmol/L (3.6-5.0); Sodium 139 mmol/L (137-145)
--- NOTE | 2016-12-08 10:34 | History and Physical Report ---
History of Present Illness Date of examination: 12/08/16 Chief complaint: 76-year-old female presents to the emergency department from home with complaint of left wrist pain and deformity since she had a slip and fall last week. The patient had some water on the floor and fell on her way back to bed. She fell with outstretched arms. She denies hitting her head or any loss of consciousness. She denies pain anywhere else besides the left wrist and arm. She has a past medical history of hypertension and previously had polio causing her to need to walk with a cane or crutches Medications and Allergies Allergies Allergy/AdvReac Type Severity Reaction Status Date / Time No Known Allergies Allergy Verified 12/02/16 13:49 Home Medications Medication Instructions Recorded Confirmed Last Taken Type HYDROcodone/APAP 5-325 [[place] 1 each PO Q6HR PRN #10 tablet 12/02/16 12/04/16 Unknown Rx 5/325] Active Meds: Active Medications Cefazolin Sodium (Ancef/Sterile Water 2 Gm/20 Ml) 2 gm IV PREOP NR Stop: 12/08/16 23:59 Famotidine (Pepcid) 20 mg IV PREOP NR Stop: 12/08/16 23:00 Last Admin: 12/08/16 10:10 Dose: 20 mg Sodium Chloride (Nacl 0.9% 1000 Ml) 1,000 mls @ 100 mls/hr IV DIRECT JOSE GUADALUPE Last Admin: 12/08/16 10:10 Dose: 100 mls/hr Midazolam HCl (Versed) 2 mg IV PREOP NR Stop: 12/08/16 23:59 Last Admin: 12/08/16 10:10 Dose: 2 mg Physical Examination - Physical exam Narrative exam: left wrist - obvious deformity at distal radius, decreased active ROM at wrist, tender to palpation Results - Labs Result Diagrams: 12/08/16 09:50 Labs: Abnormal lab results 12/08/16 Range/Units 09:50 Hgb 8.2 L (10.1-14.3) gm/dl Hct 27.1 L (30.3-42.9) % MCV 65 L (79-97) fl MCH 20 L (28-32) pg RDW 19.8 H (13.2-15.2) % [place] % (Auto) 10.8 H (0.0-7.3) % Eos % (Auto) 6.2 H (0.0-4.3) % H & H 12/08/16 Range/Units 09:50 Hgb 8.2 L (10.1-14.3) gm/dl Hct 27.1 L (30.3-42.9) % All other labs normal. Assessment and Plan asses - displaced left distal radius fracture plan- open reduction internal fixation left distal radius
[2016-12-08] MEDS ORDERED: XYLOCAINE MPF 2% ONE (10:47)
[2016-12-08] MEDS ORDERED: SUBLIMAZE ONE (10:47)
[2016-12-08] MEDS ORDERED: DIPRIVAN 10 MG/ML IV ONE ×2 (10:47→11:14)
[2016-12-08] MEDS ORDERED: ePHEDrine SULFATE ONE (11:34)
[2016-12-08] MEDS ORDERED: NACL 0.9% 1000 ML 1,000 ML ONE (12:38)
--- NOTE | 2016-12-08 13:24 | Procedure Note ---
Date of procedure: 12/08/16 Pre-op diagnosis: displaced left distal radius fracture Post-op diagnosis: same Procedure: Procedure Open reduction internal fixation left distal radius Indications A 76-year-old female who sustained a displaced left distal radius fracture after a slip and fall accident at home 1 week prior Procedure The patient was brought to the or after being given a supraclavicular nerve block in preoperative holding she was placed onto the OR table in supine position, the left upper extremity was prepped and draped in the usual sterile manner. A timeout procedure was done to identify the patient and the correct operative site next the arm was exsanguinated followed by inflation of the pneumatic tourniquet to 250 mmHg. A volar incision was made along the distal radius in line with the flexor carpi radialis tendon was carried down through skin and subcutaneous care was taken to protect the neurovascular structures using a combination of blunt and sharp dissection the quadratus muscle and tendon were stripped from the distal radius this brought us down to the fracture site which which appeared to have early callus formation surgery was debrided of soft tissue and the fracture fragments were then manipulated into a more reduced position next K wires were used to stabilize the fracture site, AP and lateral view was obtained on the C-arm showed good reduction at the fracture site. Next a [employer] DVR cross lock narrow left plate was applied to the volar surface of the distal radius this is then secured with locking screws of various lengths. After securing the plate with with the locking screws x- rays were obtained showing good reduction of the fracture and placement of our hardware. The wound was then copiously irrigated with normal saline solution, closure was begun using a 0 Vicryl followed by 3-0 Vicryl in a running subcuticular stitch pattern. Some dressings were applied as well as a well- padded volar splint and the patient tolerated procedure and there were no complications. Taken to postanesthesia recovery in stable condition Anesthesia: regional Surgeon: BRENDA HIGGINBOTHAM Estimated blood loss: minimal Pathology: none Condition: stable Disposition: PACU
--- NOTE | 2016-12-08 13:51 | XRay Report ---
LEFT WRIST, 2 VIEWS History: Fracture, pain. Findings: AP and lateral fluoroscopic images were obtained of the left wrist during surgery. The images demonstrate open reduction and internal fixation of a comminuted distal radial fracture. Distal ulnar fracture is noted and unchanged in position. Impression: Open reduction and internal fixation of a distal radial fracture.
[2016-12-08 14:35] VITALS: BP 109/55
--- NOTE | 2016-12-08 17:47 | Post Anesthesia Evaluation ---
- Post Anesthesia Evaluation Patient Participated: Yes Airway Patent: Yes Stable Respiratory Function: Yes Nausea/Vomiting: No Temp > 96.8F: Yes Pain Manageable: Yes Adequeate Hydration: Yes Anesthesia Complications: No Block Receding Appropriately: Not Applicable Patient on Ventilator: No
== END 2016-12-08 14:57 | disposition home or self-care (01) ==
LOC: OR 08:37
PROVIDERS: ATTEND Orthopaedic Surgery
DX: S52.502A Unspecified fracture of the lower end of left radius, initial encounter for closed fracture (principal); I10 Essential (primary) hypertension; Z86.12 Personal history of poliomyelitis; Z87.891 Personal history of nicotine dependence; W01.0XXA Fall on same level from slipping, tripping and stumbling without subsequent striking against object, initial encounter; Y93.89 Activity, other specified; Y92.89 Other specified places as the place of occurrence of the external cause; Y99.8 Other external cause status
CPT/HCPCS: 25607; 36415; 73100; 80053; 85025; C1713; J0690; J0735; J1100; J2250; J2704; J3010; J7030

== ENCOUNTER 2021-12-05 03:31 | Emergency (ER) | payer MEDICARE ==
[2021-12-05] MEDS ORDERED: ONDANSETRON 4 MG/2 ML INJ IV ONE (03:59)
[2021-12-05] MEDS ORDERED: SODIUM CHLORIDE 0.9% 1000 ML 1,000 ML IV ONE ×2 (03:59→08:51)
[2021-12-05] MEDS ORDERED: PANTOPRAZOLE 40 MG INJ IV ONE (04:05)
--- NOTE | 2021-12-05 04:06 | Emergency Department Report ---
<ORLIN FARLEY - Last Filed: 12/05/21 10:40> ED GI Bleed HPI - General Chief complaint: GI Bleed Stated complaint: GI BLEED Time Seen by Provider: 12/05/21 03:49 - Related Data Home Medications Medication Instructions Recorded Confirmed Last Taken ALPRAZolam [Xanax TAB] 1 mg PO BID PRN 12/05/21 12/05/21 Unknown Amlodipine Besylate/Benazepril 1 each PO QDAY 12/05/21 12/05/21 Unknown [Amlodipine-Benazepril 10-20 mg] Diclofenac 1% [Diclofenac 1% 100 gm TP TID 12/05/21 12/05/21 Unknown topical gel] Gabapentin [Neurontin] 600 mg PO Q8H 12/05/21 12/05/21 Unknown Meloxicam [Mobic] 7.5 mg PO QDAY 12/05/21 12/05/21 Unknown Omeprazole 20 mg PO QDAY 12/05/21 12/05/21 Unknown PARoxetine MESYLATE [Pexeva] 10 mg PO QAM 12/05/21 12/05/21 Unknown Trazodone HCl 50 mg PO QHS 12/05/21 12/05/21 Unknown Previous Rx's Medication Instructions Recorded Last Taken Type Oxycodone HCl/Acetaminophen 1 each PO Q6HR PRN #35 tablet 12/08/16 Unknown Rx [Percocet 7.5/325 mg] Allergies Allergy/AdvReac Type Severity Reaction Status Date / Time No Known Allergies Allergy Verified 12/02/16 13:49 ED Past Medical Hx - Medications Home Medications: Home Medications Medication Instructions Recorded Confirmed Last Taken Type Oxycodone HCl/Acetaminophen 1 each PO Q6HR PRN #35 tablet 12/08/16 12/05/21 Unknown Rx [Percocet 7.5/325 mg] ALPRAZolam [Xanax TAB] 1 mg PO BID PRN 12/05/21 12/05/21 Unknown History Amlodipine Besylate/Benazepril 1 each PO QDAY 12/05/21 12/05/21 Unknown History [Amlodipine-Benazepril 10-20 mg] Diclofenac 1% [Diclofenac 1% 100 gm TP TID 12/05/21 12/05/21 Unknown History topical gel] Gabapentin [Neurontin] 600 mg PO Q8H 12/05/21 12/05/21 Unknown History Meloxicam [Mobic] 7.5 mg PO QDAY 12/05/21 12/05/21 Unknown History Omeprazole 20 mg PO QDAY 12/05/21 12/05/21 Unknown History PARoxetine MESYLATE [Pexeva] 10 mg PO QAM 12/05/21 12/05/21 Unknown History Trazodone HCl 50 mg PO QHS 12/05/21 12/05/21 Unknown History - Central Line Placement Right IJ Consent Obtained: emergent situation Time Out Performed: Yes Patient Placed on Monitor/Pulse Ox: Yes MD Prep: mask, gown, gloves Central Line Prep: Chlorhexidine scrub Central Line Lumen Inserted: triple Reason for Insertion: Volume Resuscitation Central Line Position: good blood return, all ports aspirated, flus, sutured in place with 2-0 Dressing Applied: Tegaderm Post Procedure X-Ray: tip of catheter in good p Patient Tolerated Procedure: well, no complications - Intubation Time Out Performed: Yes Sedative: Etomidate Mg Given: 20 Paralytic: Rocuronium Mg Given: 100 Laryngoscope: fiberoptic video scope Size: 4 ET Tube Size: 7.5 Tube Secured Depth (cm): 23 Tube Secured Location: lips Tube Placement Confirmation: visualized tube passing t, equal breath sounds bilat, no breath sounds over epi Patient Tolerated Procedure: well, no complications Intubation Complications: none ED Medical Decision Making - Lab Data Result diagrams: 12/05/21 04:21 12/05/21 04:21 - Medical Decision Making Patient sounded me at shift change for follow-up labs and imaging. 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 I contacted on-call surgeon Dr. Grider who recommended transfer as we have no CT surgery coverage here. Patient was also intubated due to impending respiratory compromise. OG tube placed to suction. The patient became hypotensive. A central line placed and Levophed drip was started. [facility] contacted and is on diversion. I discussed the case with CT surgery at [facility]. Patient is excepted for transfer when bed becomes available. We will continue to monitor closely/treat until transfer. Critical Care Time: Yes Critical care time in (mins) excluding proc time.: 65 ED Disposition Clinical Impression: GI bleeding Qualifiers: GI bleed type/associated pathology: unspecified gastrointestinal hemorrhage type Qualified Code(s): K92.2 - Gastrointestinal hemorrhage, unspecified Abdominal pain Qualifiers: Abdominal location: generalized Qualified Code(s): R10.84 - Generalized abdominal pain Disposition: 02 [facility] Is pt being admited?: No Condition: Critical Referrals: HARDEEP HAYES MD [Staff Physician] - 3-5 Days Forms: Accompanied Note <BINTA FAJARDO - Last Filed: 12/11/21 06:51> ED GI Bleed HPI - General Source: EMS Mode of arrival: Stretcher Limitations: No Limitations - History of Present Illness Initial comments: 81-year-old female brought in by EMS with family member with possible GI bleed associated with coffee ground emesis for the last couple of days progressively getting worse. Patient also reports some abdominal pain associated with distention. No fever or chills reported. No urinary symptoms or pressure. No other modifying or associated factors reported. complaint: coffee ground emesis ED Review of Systems ROS: Stated complaint: GI BLEED Other details as noted in HPI Comment: All other systems reviewed and negative Gastrointestinal: nausea, vomiting (Coffee-ground emesis), hematemesis ED Past Medical Hx - Past Medical History Previous Medical History?: Yes Hx Hypertension: Yes (X 10 YRS) Hx Asthma: Yes (SEASONAL) Additional medical history: POLIO - Surgical History Past Surgical History?: No - Social History Smoking Status: Current Every Day Smoker Substance Use Type: Alcohol ED Physical Exam - General Limitations: No Limitations General appearance: alert, in no apparent distress - Head Head exam: Present: normal inspection - Eye Eye exam: Present: normal appearance Pupils: Present: normal accommodation - ENT ENT exam: Present: normal exam, normal orophraynx, mucous membranes dry - Neck Neck exam: Present: normal inspection, full ROM. Absent: tenderness - Respiratory Respiratory exam: Present: normal lung sounds bilaterally. Absent: respiratory distress, accessory muscle use - Cardiovascular Cardiovascular Exam: Present: regular rate, normal rhythm - GI/Abdominal GI/Abdominal exam: Present: soft, normal bowel sounds. Absent: distended, tenderness - Extremities Exam Extremities exam: Present: normal inspection, normal capillary refill, other (right leg shorter the left with h/o polio as a child) - Back Exam Back exam: Absent: tenderness - Neurological Exam Neurological exam: Present: alert, oriented X3 - Psychiatric Psychiatric exam: Present: normal affect, normal mood - Skin Skin exam: Present: warm, normal color ED Course Vital Signs 12/05/21 12/05/21 12/05/21 03:33 04:24 04:33 Temperature 98.7 F Pulse Rate 103 H Respiratory 18 Rate Blood Pressure 109/97 107/49 Blood Pressure [Left] O2 Sat by Pulse 95 100 Oximetry 12/05/21 12/05/21 12/05/21 04:45 05:01 05:15 Temperature Pulse Rate 107 H 104 H Respiratory 30 H 18 Rate Blood Pressure 116/45 108/47 85/55 Blood Pressure [Left] O2 Sat by Pulse 90 100 Oximetry 12/05/21 12/05/21 12/05/21 05:30 05:45 06:00 Temperature Pulse Rate 122 H 94 H 96 H Respiratory 21 20 25 H Rate Blood Pressure 98/49 88/47 97/43 Blood Pressure [Left] O2 Sat by Pulse 92 100 Oximetry 12/05/21 12/05/21 12/05/21 06:15 06:31 06:45 Temperature Pulse Rate 97 H 97 H 91 H Respiratory 30 H 31 H 30 H Rate Blood Pressure 93/45 94/43 94/44 Blood Pressure [Left] O2 Sat by Pulse 94 84 Oximetry 12/05/21 12/05/21 12/05/21 07:00 07:29 07:30 Temperature Pulse Rate 94 H 93 H Respiratory 14 23 Rate Blood Pressure 99/45 Blood Pressure 82/44 [Left] O2 Sat by Pulse 98 98 Oximetry 12/05/21 12/05/21 12/05/21 08:40 09:01 09:15 Temperature Pulse Rate 98 H 96 H 97 H Respiratory 14 13 Rate Blood Pressure 89/45 51/16 Blood Pressure [Left] O2 Sat by Pulse 98 71 L Oximetry 12/05/21 12/05/21 12/05/21 09:31 09:45 10:00 Temperature Pulse Rate 94 H 97 H 97 H Respiratory 14 15 14 Rate Blood Pressure 75/28 80/27 79/30 Blood Pressure [Left] O2 Sat by Pulse 67 L 84 81 L Oximetry 12/05/21 12/05/21 12/05/21 10:15 10:30 10:45 Temperature Pulse Rate 101 H 100 H 101 H Respiratory 13 14 14 Rate Blood Pressure 97/29 86/27 80/26 Blood Pressure [Left] O2 Sat by Pulse 82 L 78 L 77 L Oximetry 12/05/21 12/05/21 12/05/21 11:00 11:15 11:30 Temperature Pulse Rate 102 H 103 H 106 H Respiratory 14 14 18 Rate Blood Pressure 83/27 91/34 95/25 Blood Pressure [Left] O2 Sat by Pulse 77 L 77 L 78 L Oximetry 12/05/21 12/05/21 12/05/21 11:45 12:00 12:15 Temperature Pulse Rate 105 H 102 H 113 H Respiratory 0 L 14 14 Rate Blood Pressure 89/33 78/32 86/35 Blood Pressure [Left] O2 Sat by Pulse 75 L 81 L 72 L Oximetry 12/05/21 12/05/21 12/05/21 12:30 12:43 12:45 Temperature Pulse Rate 102 H 90 104 H Respiratory 14 14 Rate Blood Pressure 91/37 97/38 Blood Pressure [Left] O2 Sat by Pulse 73 L 97 75 L Oximetry 12/05/21 12/05/21 12/05/21 13:00 13:15 13:30 Temperature Pulse Rate 97 H 98 H 99 H Respiratory 13 14 14 Rate Blood Pressure 93/33 88/33 94/31 Blood Pressure [Left] O2 Sat by Pulse 100 100 100 Oximetry 12/05/21 12/05/21 12/05/21 13:45 14:00 14:15 Temperature Pulse Rate 104 H 102 H 102 H Respiratory 14 14 14 Rate Blood Pressure 99/40 97/43 98/42 Blood Pressure [Left] O2 Sat by Pulse 100 100 100 Oximetry 12/05/21 12/05/21 12/05/21 14:30 14:45 15:00 Temperature Pulse Rate 102 H 97 H 96 H Respiratory 14 14 14 Rate Blood Pressure 97/41 93/39 92/38 Blood Pressure [Left] O2 Sat by Pulse 100 100 100 Oximetry 12/05/21 12/05/21 12/05/21 15:10 15:15 15:30 Temperature Pulse Rate 68 97 H 97 H Respiratory 16 16 Rate Blood Pressure 66/39 111/61 116/62 Blood Pressure [Left] O2 Sat by Pulse 98 100 100 Oximetry 12/05/21 12/05/21 12/05/21 15:45 16:00 16:15 Temperature Pulse Rate 93 H 92 H 91 H Respiratory 20 20 20 Rate Blood Pressure 96/53 103/55 104/53 Blood Pressure [Left] O2 Sat by Pulse 100 100 100 Oximetry 12/05/21 12/05/21 12/05/21 16:30 16:45 17:00 Temperature Pulse Rate 92 H 93 H 94 H Respiratory 20 20 20 Rate Blood Pressure 99/56 106/54 99/56 Blood Pressure [Left] O2 Sat by Pulse 100 100 100 Oximetry 12/05/21 12/05/21 12/05/21 17:15 17:30 17:45 Temperature Pulse Rate 92 H 115 H 108 H Respiratory 20 20 20 Rate Blood Pressure 108/60 99/62 109/65 Blood Pressure [Left] O2 Sat by Pulse 100 100 100 Oximetry 12/05/21 12/05/21 12/05/21 18:00 18:15 18:45 Temperature Pulse Rate 94 H 116 H 123 H Respiratory 16 20 28 H Rate Blood Pressure 111/66 113/75 90/43 Blood Pressure [Left] O2 Sat by Pulse 100 100 100 Oximetry 12/05/21 12/05/21 12/05/21 19:01 19:15 19:31 Temperature Pulse Rate 113 H 102 H 98 H Respiratory 24 39 H 20 Rate Blood Pressure 50/19 50/19 82/44 Blood Pressure [Left] O2 Sat by Pulse 100 97 100 Oximetry 12/05/21 12/05/21 12/05/21 19:45 20:01 20:15 Temperature Pulse Rate 98 H 99 H 106 H Respiratory 20 20 20 Rate Blood Pressure 89/45 89/55 89/42 Blood Pressure [Left] O2 Sat by Pulse 100 100 100 Oximetry 12/05/21 12/05/21 12/05/21 20:31 20:36 20:45 Temperature Pulse Rate 106 H 104 H 106 H Respiratory 20 20 Rate Blood Pressure 92/39 98/74 91/54 Blood Pressure [Left] O2 Sat by Pulse 100 100 100 Oximetry 12/05/21 12/05/21 12/05/21 20:55 21:01 21:05 Temperature Pulse Rate 107 H 110 H 110 H Respiratory 20 27 H 18 Rate Blood Pressure 91/54 91/54 90/47 Blood Pressure [Left] O2 Sat by Pulse 100 100 100 Oximetry 12/05/21 12/05/21 12/05/21 21:11 21:15 21:21 Temperature Pulse Rate 110 H 111 H 112 H Respiratory 20 16 22 Rate Blood Pressure 90/47 99/55 99/55 Blood Pressure [Left] O2 Sat by Pulse 100 100 100 Oximetry 12/05/21 12/05/21 12/05/21 21:25 21:31 21:35 Temperature Pulse Rate 111 H 111 H 111 H Respiratory 16 29 H 18 Rate Blood Pressure 99/55 91/54 91/54 Blood Pressure [Left] O2 Sat by Pulse 100 100 100 Oximetry 12/05/21 12/05/21 12/05/21 21:41 21:45 21:51 Temperature Pulse Rate 112 H 111 H 110 H Respiratory 21 23 23 Rate Blood Pressure 91/54 91/54 91/54 Blood Pressure [Left] O2 Sat by Pulse 100 100 100 Oximetry 12/05/21 12/05/21 12/05/21 21:55 22:01 22:05 Temperature Pulse Rate 113 H 120 H 120 H Respiratory 21 25 H 31 H Rate Blood Pressure 91/54 88/54 98/51 Blood Pressure [Left] O2 Sat by Pulse 100 100 100 Oximetry 12/05/21 12/05/21 12/05/21 22:11 22:15 22:21 Temperature Pulse Rate 121 H 121 H 121 H Respiratory 26 H 35 H 36 H Rate Blood Pressure 98/51 121/53 121/53 Blood Pressure [Left] O2 Sat by Pulse 100 100 100 Oximetry 12/05/21 12/05/21 12/05/21 22:25 22:31 22:35 Temperature Pulse Rate 121 H 118 H 124 H Respiratory 31 H 22 37 H Rate Blood Pressure 91/54 91/54 90/49 Blood Pressure [Left] O2 Sat by Pulse 100 100 100 Oximetry 12/05/21 12/05/21 12/05/21 22:41 22:45 22:51 Temperature Pulse Rate 127 H 128 H 129 H Respiratory 32 H 37 H 26 H Rate Blood Pressure 90/49 95/42 95/42 Blood Pressure [Left] O2 Sat by Pulse 100 100 100 Oximetry 12/05/21 12/05/21 12/05/21 22:55 23:01 23:05 Temperature Pulse Rate 130 H 127 H 130 H Respiratory 34 H 30 H 37 H Rate Blood Pressure 107/82 121/53 84/43 Blood Pressure [Left] O2 Sat by Pulse 100 100 100 Oximetry 12/05/21 12/05/21 12/05/21 23:11 23:15 23:21 Temperature Pulse Rate 132 H 128 H 132 H Respiratory 39 H 35 H 37 H Rate Blood Pressure 84/43 95/29 95/29 Blood Pressure [Left] O2 Sat by Pulse 100 100 99 Oximetry 12/05/21 12/05/21 12/05/21 23:25 23:31 23:35 Temperature Pulse Rate 129 H 130 H 130 H Respiratory 38 H 33 H 34 H Rate Blood Pressure 98/56 98/56 104/48 Blood Pressure [Left] O2 Sat by Pulse 100 100 100 Oximetry - Reevaluation(s) Reevaluation #1: 12/05/21 06:[address] Farley while waiting for labs and CTs abd/pel and Chest ED Medical Decision Making - Lab Data Result diagrams: 12/05/21 17:52 12/05/21 04:21 - Medical Decision Making Here with abdominal pain--differential could be but not limited to appendicitis, diverticulitis, cholecystitis, cholelithiasis, nephrolithiasis, gastritis, pancreatitis, duodenitis, colitis, irritable bowel syndrome, cystitis, so in order to rule this out we will go ahead and order routine acute abdomen that include CBC, CMP, urinalysis, and CT imaging of the abdomen/pelvic. With coffee ground emesis -- x 2 days will go ahead and give protonix 80 mg IV x 1 and ivf ns 1L bolus x 1 while waiting for the above labs-- Critical care attestation.: If time is entered above; I have spent that time in minutes in the direct care of this critically ill patient, excluding procedure time. ED Disposition Does the pt Need Aspirin: No
[2021-12-05 04:41] LABS: Hematocrit 38.4 % (30.3-42.9); Hemoglobin 12.9 gm/dl (10.1-14.3); Mean Corpuscular HGB Conc 34 % (30-34); Mean Corpuscular Volume 90 fl (79-97); Platelet Count 295 K/mm3 (140-440); Red Blood Count 4.26 M/mm3 (3.65-5.03); Red Cell Distribution Width 14.9 % (13.2-15.2)
[2021-12-05 04:51] LABS: INR 1.23 (0.87-1.13)
[2021-12-05 04:52] LABS: Partial Thromboplastin Time 20.1 Sec. (24.2-36.6)
[2021-12-05 04:56] LABS: Albumin 3.3 g/dL (3.9-5); Calcium 8.7 mg/dL (8.4-10.2)
[2021-12-05 05:21] LABS: Total Cells Counted 100
[2021-12-05 05:22] LABS: Band Neutrophils # (Manual) 0.4 K/mm3; Basophils % (Manual) 0 % (0.0-1.8); Eosinophils % (Manual) 0 % (0.0-4.3); Platelet Estimate Consistent w Auto
[2021-12-05] MEDS ORDERED: CEFEPIME/NS 2 GM/100 ML 2 GM/100 ML BAG IV ONE (05:59)
--- NOTE | 2021-12-05 06:32 | Cat Scan Report ---
CT chest wo con, CT abdomen pelvis wo con INDICATION / CLINICAL INFORMATION: sob. TECHNIQUE: Axial CT images were obtained through the chest, abdomen, pelvis without IV contrast. All CT scans at this location are performed using CT dose reduction for ALARA by means of automated exposure control . COMPARISON: None available. FINDINGS: CHEST: Mild thoracic aortic calcification without acute abnormality. Heart is not enlarged. Mild coronary ar zach calcifications. No pericardial effusion. No thoracic lymphadenopathy. 2 soft tissue mass in the right breast, measuring 3.6 cm and 2.6 cm. Left nipple retraction without suspicious lesion. There is a focal defect of the right hemidiaphragm, measuring 2.2 cm (series 2 image 72), containing large area of fat and dilated colon. There is focal disruption of the colon within the hernia with mo derate extraluminal gas, compatible with perforation. Additional fat-containing paraesophageal hernia noted. There is patchy airspace consolidation of the right lower lobe and right middle lobe with airspace di sease in the right upper lobe. Small right pneumothorax and small to moderate volume complex right pl eural fluid. Left upper lung calcifications. Left lung is otherwise clear. No acute osseous findings. ABDOMEN/PELVIS: Liver is unremarkable. There is sludge and/or stones in the gallbladder. No bowel dilatation. Pancrea s, spleen, and adrenals demonstrate no acute abnormality. Right upper pole AML. No acute renal abnorm ality. No hydronephrosis. Bladder is decompressed and uterus is unremarkable. The colon at the hepatic flexure extends into the right hemidiaphragm defect detailed above with perf oration and moderate volume free air. Left hemidiaphragm is elevated without focal defect. Stomach is unremarkable. The mid to distal small bowel and ascending colon are dilated proximal to the diaphrag matic defect. The colon distal to the hernia defect is decompressed with noninflamed diverticulosis. No bowel inflammation in the abdomen or pelvis. No other free air is seen within the abdomen or pelvi s. No organized collection. Calcified atherosclerotic plaque is noted throughout the nonaneurysmal ab dominal aorta and its branches. No significant adenopathy. No acute osseous findings. IMPRESSION: 1. Focal defect in the right hemidiaphragm consistent with rupture. The colon at the hepatic flexure extends into the chest through the defect with associated colonic perforation and moderate volume gas surrounding the colon in the chest. Additionally, there is also obstruction of the ascending colon a nd distal small bowel proximal to the defect. Surgical consultation is recommended. 2. Small to moderate right pleural fluid and small amount of gas, most consistent with hemopneumothor ax. Airspace consolidation of the right middle and right lower lobe with patchy airspace disease in t he upper lungs bilaterally, compatible with pneumonia. 3. No other acute findings. 4. 2 right breast masses, for which mammographic correlation is recommended. 5. Other chronic and incidental findings as above. CRITICAL RESULT: Time of Discovery (DIRECTOR OF IN SERVICE EDUCATION/CDT): 12/05/2021 at 5:20 AM Time of Communication (DIRECTOR OF IN SERVICE EDUCATION/CDT): 5:27 AM Licensed Practitioner Receiving Report: Dr. Parker Read-Back Performed: Yes. Signer Name: Azam Fox MD Signed: 12/05/2021 6:27 AM Workstation Name: [id number]
[2021-12-05] MEDS ORDERED: ROCURONIUM 50 MG/5 ML INJ IV ONE ×2 (08:15)
[2021-12-05] MEDS ORDERED: ETOMIDATE 20 MG/10 ML INJ IV ONE ×2 (08:15)
[2021-12-05] MEDS: NORepinephrine/NS 8 MG-250 ML 8 MG/250 ML INFUS..BTL IV SCH ×2 (08:40→14:00)
--- NOTE | 2021-12-05 09:00 | Electrocardiograph Report ---
[facility] Test Date: 2021-12-05 Test Time: 04:53:04 Pat Name: JONATHAN BRAUN Department: Room: Gender: F Pre K Teacher: BISI : 1940 Requested By: BINTA FAJARDO Order Number: [id number] Reading MD: Richard Marroquin Measurements Intervals Cameron Rate: 100 P: 0 MT: 163 QRS: 51 QRSD: 81 T: QT: 387 QTc: 500 Interpretive Statements Sinus tachycardia Nonspecific T abnormalities, inferior leads No previous ECG available for comparison Electronically Signed On 12-05-2021 8:59:56 EDT by Richard Marroquin
[2021-12-05 10:43] LABS: Bacteria,Urine 2+ /HPF (Negative)
[2021-12-05 10:55] LABS: Bilirubin,Urine Negative (Negative); Blood,Urine Moderate (Negative); Protein,Urine >500 mg/dL (Negative); Urobilinogen,Urine < 2.0 mg/dL (<2.0)
[2021-12-05 10:56] LABS: Color,Urine Amber (Yellow)
[2021-12-05 12:00] LABS: ABG Base Excess -8.7 mmol/L (-2.0-3.0); ABG HCO3 19.9 mmol/L (20.0-26.0); ABG Methemoglobin 0.7 % (0.0-1.5); ABG Oxygen Saturation 75.8 % (95.0-99.0); ABG PCO2 55.1 mm Hg; ABG PO2 48.2 mm Hg (80.0-90.0)
[2021-12-05 12:02] LABS: ABG PH 7.175 pH Units (7.350-7.450)
--- NOTE | 2021-12-05 12:29 | XRay Report ---
ABDOMEN 1 VIEW INDICATION / CLINICAL INFORMATION: OG tube. COMPARISON: CT abdomen and pelvis without contrast performed earlier today. FINDINGS: TUBES / LINES: An orogastric tube has been placed that terminates over the gastric body. BOWEL GAS PATTERN: Previous is seen bowel dilatation is unchanged. The previously seen findings of ri ght diaphragmatic rupture with herniation are unchanged. FREE AIR / EXTRALUMINAL GAS: None seen. ADDITIONAL FINDINGS: There are similar findings of right basilar hemopneumothorax. IMPRESSION: 1. Satisfactory positioning of the orogastric tube. 2. Additional findings as above have not significantly changed compared to the CT performed earlier t latanya. Signer Name: Corey Tapia MD Signed: 12/05/2021 12:25 PM Workstation Name: [id number]
--- NOTE | 2021-12-05 12:32 | XRay Report ---
CHEST 1 VIEW 12/05/2021 11:17 AM INDICATION / CLINICAL INFORMATION: Intubation. COMPARISON: CT chest without contrast performed earlier today. FINDINGS: SUPPORT DEVICES: The ET tube terminates over the proximal right main bronchus, approximately 1.2 cm b elow the taina. An orogastric tube terminates over the gastric body. There is expected positioning o f a right internal jugular CVL, terminating over the right atrium. HEART / MEDIASTINUM: Similar size of the cardiac silhouette without new acute findings. LUNGS / PLEURA: There is now nearly complete opacification of the left lung, likely representing atel ectasis related to malposition of the ET tube. The previously reported right hemopneumothorax and fin dings of right diaphragmatic rupture are unchanged. No new significant abnormality of the right lung. ADDITIONAL FINDINGS: No significant additional findings. IMPRESSION: 1. Well-positioned ET tube as above. Retraction of the tube by 3 cm is recommended. 2. Probable nearly complete left atelectasis secondary to malposition of the ET tube. 3. Additional findings as above. Signer Name: Corey Tapia MD Signed: 12/05/2021 12:27 PM Workstation Name: [id number]
[2021-12-05 15:20] LABS: ABG HCO3 19.2 mmol/L (20.0-26.0); ABG Methemoglobin 0.7 % (0.0-1.5); ABG Oxygen Saturation 97.5 % (95.0-99.0); ABG PCO2 50.9 mm Hg
[2021-12-05 15:28] LABS: ABG PH 7.194 pH Units (7.350-7.450)
[2021-12-05 18:11] LABS: Hematocrit 39.4 % (30.3-42.9); Hemoglobin 12.7 gm/dl (10.1-14.3); Mean Corpuscular HGB Conc 32 % (30-34); Mean Corpuscular Volume 92 fl (79-97); Red Blood Count 4.27 M/mm3 (3.65-5.03); Red Cell Distribution Width 15.6 % (13.2-15.2)
[2021-12-05 18:12] LABS: Platelet Count 278 K/mm3 (140-440)
[2021-12-05 18:47] LABS: Basophils % (Manual) 0 % (0.0-1.8); Eosinophils % (Manual) 0 % (0.0-4.3); Platelet Clumps Few; Platelet Estimate Consistent w Auto; RBC Morphology Normal; Total Cells Counted 100
[2021-12-05] MEDS ORDERED: DOPamine 800 MG/D5W 250ML 800 MG/250 ML BAG IV ONE (20:27)
[2021-12-05 23:38] VITALS: BP 104/48
== END 2021-12-06 00:08 | disposition short-term general hospital (02) ==
LOC: ED 03:31
DX: K92.2 Gastrointestinal hemorrhage, unspecified (principal); R10.9 Unspecified abdominal pain; I10 Essential (primary) hypertension; J45.909 Unspecified asthma, uncomplicated; F17.200 Nicotine dependence, unspecified, uncomplicated; Z79.899 Other long term (current) drug therapy
CPT/HCPCS: 31500; 36415; 36556; 71045; 71250; 74018; 74176; 80053; 81001; 82140; 82803; 83690; 85007; 85025; 85610; 85730; 87070; 87076; 87186; 87205; 93005; 96361; 96365; 96366; 96367; 96375; 99291; C9113; J0692; J1265; J2354; J2405; J3490; J7030; 94002; 99285